=== PATIENT | female | born 1940 | race Caucasian/White ===

== ENCOUNTER 2018-01-25 13:04 | Emergency (ER) | payer OTHER ==
[~2018-01-25] VITALS: Ht 152.4 cm; Wt 62.4 kg
[2018-01-25 13:10] VITALS: BP 121/68
--- NOTE | 2018-01-25 13:15 | NUR ---
PT AMBULATES TO BED 10
--- NOTE | 2018-01-25 13:18 | NUR ---
77/F BIB SISTER C/O PRODUCTIVE COUGH, FEVER, CHILLS, CHEST PRESSURE WHEN ONLY COUGHING X 5 DAYS. HX; LT BREAST CA. DENIES N/V/D; SKIN IS PINK/WARM/DRY; AAOX4 WITH EVEN AND STEADY GAIT; LUNGS CLEAR BL; HR EVEN AND REGULAR. PATIENT STATES PAIN OF 0/10 AT THIS TIME. PATIENT POSITIONED FOR COMFORT; HOB ELEVATED; BEDRAILS UP X2; BED DOWN. ER MD MADE AWARE OF PT STATUS.
--- NOTE | 2018-01-25 13:32 | NUR ---
Patient being evaluated by DR CLAY at bedside.
--- NOTE | 2018-01-25 13:45 | NUR ---
CXR AT BEDSIDE.
[2018-01-25] MEDS ORDERED: ACETAMINOPHEN 325 MG TAB PO ONE (14:05)
--- NOTE | 2018-01-25 14:31 | NUR ---
Patient being reevaluated by DR CLAY at bedside.
[2018-01-25 14:43] VITALS: BP 102/51
--- NOTE | 2018-01-25 14:43 | NUR ---
Patient discharged with v/s stable. Written and verbal after care instructions given and explained. Patient alert, oriented and verbalized understanding of instructions. Ambulatory with steady gait. All questions addressed prior to discharge. ID band removed. Patient advised to follow up with PMD. Rx of prednisone &albuterol given. Patient educated on indication of medication including possible reaction and side effects. Opportunity to ask questions provided and answered.
== END 2018-01-25 14:43 | disposition home or self-care (01) ==
LOC: MED 13:04
DX: B34.9 Viral infection, unspecified (principal); J98.01 Acute bronchospasm; E11.9 Type 2 diabetes mellitus without complications
CPT/HCPCS: 71045; 93005; 99284; Q0092; 99285